=== PATIENT | male | born 2000 | race Caucasian/White ===

== ENCOUNTER 2023-07-29 08:49 | Emergency (ER) | payer OTHER, SELFPAY ==
--- NOTE | ~2023-07-29 | CT_ITS ---
EXAMINATION: CT ABDOMEN AND PELVIS WITHOUT CONTRAST CLINICAL INFORMATION: Right-sided flank pain and right upper quadrant pain COMPARISON: None available. TECHNIQUE: Multidetector volumetric imaging was performed from the superior aspect of the liver through the pubic symphysis. Sagittal and coronal reformatted images were obtained on the technologist's workstation. This CT examination was performed using dose optimization techniques as appropriate, variously including the following: *Automated exposure control *Adjustment of mA and/or kV according to patient size (this includes techniques or standardized protocols for targeted exams where dose is matched to indication/reason for exam; i.e. extremities or head) *Use of iterative reconstruction technique DLP: 835 mGy-cm FINDINGS: LUNG BASES: Diffuse bronchial thickening is present. No effusions, consolidations or lung masses are seen. LIVER, GALLBLADDER, AND BILIARY TREE: The liver is enlarged at 18.3 cm in cephalocaudad dimension with decreased attenuation consistent with hepatic steatosis. No focal hepatic lesion or biliary ductal dilatation is present. The gallbladder is unremarkable with no evidence of radiopaque gallstones, gallbladder wall thickening, or obvious pericholecystic inflammatory changes. PANCREAS: Unremarkable. SPLEEN: Unremarkable. ADRENAL GLANDS: Unremarkable. KIDNEYS AND URETERS: On the right, there is an obstructing 1 mm calculus seen at the right ureterovesical junction with mild dilatation of the ureter and right renal collecting system. There is a nonobstructing 2 mm calculus at the lower pole of the right kidney (4:352). No renal masses are seen. The left kidney appears normal. BLADDER: Empty but unremarkable aside from stone at the right UVJ GASTROINTESTINAL TRACT: The small and large bowel are unremarkable. The appendix is unremarkable. ABDOMINAL WALL: No significant hernia is appreciated. LYMPH NODES: Normal. VASCULAR: Unremarkable. PELVIC VISCERA: The prostate and seminal vesicles are unremarkable. OSSEOUS STRUCTURES: Unremarkable. CT/CT abdomen pelvis wo IV con IMPRESSION: 1. Obstructing 1 mm calculus right UVJ with mild hydronephrosis. 2. Nonobstructing 2 mm calculus lower pole right kidney. 3. Incidental note made of enlarged fatty liver and diffuse bronchial thickening. Fleischner guidelines were followed.
[2023-07-29 08:56] VITALS: BP 147/85; PULSE 76; O2SAT 100
[2023-07-29 09:05] VITALS: BP 131/87; PULSE 66; RESP 16; TEMP 36.2; O2SAT 98; BMI 31.9
[2023-07-29 09:07] VITALS: BP 131/81; PULSE 68; RESP 18; TEMP 36.2; O2SAT 98
--- NOTE | 2023-07-29 09:09 | PC.NURSE ---
Pt coming from home via EMS, Welsh speaking only and ammonia box operator utilized. Pt reports right sided ABD pain upper & lower since 0700AM this morning. Describes pain as squeezing, /, denies this has ever happened before. Pt also reports 1 episode of vomiting, dizziness and constipation. Pt denies any CP, SOB, fevers, cough. Pt is alert and oriented, breathing even and unlabored, skin WNL. Pt restless in bed, obviously uncomfortable. Guarding ABD, no obvious distention noted.
--- NOTE | 2023-07-29 09:33 | ED.ABDPAIN ---
HPI - Abdominal Pain General Chief Complaint: Abdominal Pain Stated Complaint: ABD PAIN Time Seen by Provider: 07/29/23 09:21 Source: patient, family and EMS Mode of arrival: EMS Limitations: no limitations History of Present Illness HPI narrative: 23-year-old male with no past significant medical history presented for evaluation of a sudden onset of right upper and right flank pain since this a.m., never experienced abdominal pain, been constipated last BM was4 days ago, pain with associated with nausea and vomiting x1, no fever, no chills, no history of intra-abdominal surgery, no known history of kidney stones, no hematuria, no dysuria, no frequency urination. Related Data Previous Rx's Medication Instructions Recorded ibuprofen 600 mg tablet 600 mg PO Q8H PRN pain #10 tabs 07/29/23 prednisone 20 mg tablet 20 mg PO BID #10 tabs 07/29/23 tamsulosin 0.4 mg capsule (Flomax) 0.4 mg PO BEDTIME #6 caps 07/29/23 Allergies Allergy/AdvReac Type Severity Reaction Status Date / Time No Known Allergies Allergy Verified 07/29/23 09:12 Review of Systems Review of Systems all other systems are reviewed and are negative Constitutional: Reports as per HPI and Reports no additional constitutional complaints Eyes: Reports as per HPI and Reports no additional eye complaints Reports system reviewed and no additional complaints, except as documented Cardiovascular: Reports as per HPI and Reports no additional cardiovascular complaints Respiratory: Reports as per HPI and Reports no additional respiratory complaints Gastrointestinal: Reports as per HPI and Reports no additional gastrointestinal complaints Genitourinary: Reports no additional female genitourinary complaints Musculoskeletal: Reports no additional musculoskeletal complaints Skin/Breast: Reports system reviewed and no additional complaints, except as docu Psychiatric: Reports no additional psychiatric complaints Endocrine: Reports no additional endocrine complaints Hematologic/Lymphatic: Reports no additional hematologic/lymphatic complaints Allergic/Immunologic: Reports no additional allergic/immunologic complaints Reports system reviewed and no additional complaints, except as documented and Reports Abnormal speech present [facility] Social History Social History Smoked in Last 30 Days: No Use of substances other than those prescribed or required for medical reasons: Yes Substance Use Type: Marijuana Advance Directives: No Advance Directives Information Provided: No Physical Exam ED Vital Signs: Vital Signs - 24 hr 07/29/23 09:05 07/29/23 09:07 07/29/23 12:20 Temperature 97.2 F 97.2 F 98 F Pulse Rate 66 68 66 Respiratory Rate 16 18 16 Blood Pressure 131/87 131/81 143/84 H Pulse Oximetry 98 98 99 Oxygen Delivery Method Room Air Room Air Room Air BMI result Body Mass Index 31.9 Vital signs have been reviewed and appear to be correct. Blood pressure elevated. Heart rate normal. Respiratory rate normal. Temperature normal. Oxygen saturation normal. Appearance: Alert. Oriented X3. No acute distress. Head: Normal external exam. Normocephalic. Atraumatic. No [place] signs noted. No raccoon eyes noted Eyes: PERRLA. EOMI. Conjunctiva and sclera normal. Eyelids normal. ENT: TM's Normal. Pharynx normal. Uvula midline. Moist mucous membranes. No trismus noted. No drooling noted. No muffled voice noted. Neck: Normal inspection. Neck supple. FROM. No adenopathy. Thyroid Normal. No meningeal signs. No neck mass noted. CVS: Normal heart rate and rhythm. Heart sound normal. No murmurs noted. Pulses normal throughout. Respiratory: No respiratory distress. Painless inspiration. Breath sounds normal. No wheezes/rales/rhonchi noted. Chest nontender. No accessory muscle usage noted or decreased air movement noted. Abdomen: Soft, mild RUQ tenderness, no rebound tenderness, no guarding, Bowel sounds normal in all 4 quadrants. No distention noted. No organomegaly noted. No visible injury noted. Back: R CVA tenderness. Full range of motion noted. Skin: Skin warm and dry. Normal skin color. Normal skin turgor. No rashes/lesions/lacerations noted. Extremities: No lower extremity edema. Extremities exhibit normal range of motion. Extremities nontender. Neuro: Oriented X 3. Cranial nerve exam: II-XII are grossly intact No motor deficit. No sensory deficit. Reflexes normal. Course Reevaluation(s) Reevaluation #1: patient feels much better still have slight pain, CT revealing 1 mm calculus in the right UVJ with mild hydronephrosis. Will discharge the patient on NSAIDs, prednisone, Flomax and follow-up with urology. Time: 13:36 Medical Decision Making Differential Diagnosis Differential Diagnoses: The differential diagnosis associated with the presentation includes ( Acute appendicitis, cholecystitis, acute pancreatitis, kidney stone, renal colic, UTI, pyelonephritis, electrolyte derangement, severe anemia.) Admission/Observation Consideration of admission/observation: Escalation of care including admission/observation considered Lab Data MDM Lab Attestation statement: I reviewed the patient's lab results. 07/29/23 09:38 07/29/23 09:38 Labs: Lab Results 07/29/23 07/29/23 Range/Units 09:38 09:51 WBC 13.4 H (4.8-10.8) X10*3/uL RBC 5.40 (4.60-5.80) X10*6/uL Hgb 15.5 (14.0-18.0) g/dl Hct 43.6 (42.0-52.0) % MCV 80.7 (80.0-98.0) fL MCH 28.7 (27.0-33.0) pg MCHC 35.6 (31.0-36.0) g/dl RDW 12.7 (11.0-16.0) % Plt Count 259 (160-400) X10*3/uL MPV 10.2 (9.4-12.4) fL Immature Gran % (Auto) 0.4 (0.0-0.4) % Neut % (Auto) 79.1 H (45-73) % Lymph % (Auto) 15.6 L (20-40) % [place] % (Auto) 4.4 (2-11) % Eos % (Auto) 0.4 (0-4) % Baso % (Auto) 0.1 (0-2) % Lymph # (Auto) 2.1 (1.2-4.9) X10*3/uL [place] # (Auto) 0.6 (0.1-1.2) X10*3/uL Eos # (Auto) 0.1 (0.0-0.4) X10*3/uL Baso # (Auto) 0.0 (0.0-0.2) X10*3/uL Abs Immat Gran (auto) 0.06 H (0.00-0.03) X10*3/uL Absolute Neuts (auto) 10.6 H (2.0-8.3) x10*3/uL Absolute Nucleated RBC 0.000 (0.0-0.012) X10*3/uL Nucleated RBC % (auto) 0.0 (0.0-0.2) /100WBC Sodium 141 (135-145) mmol/L Potassium 4.0 (3.3-5.1) mmol/L Chloride 107 (96-108) mmol/L Carbon Dioxide 23 (22-29) mmol/L Anion Gap 15 (12-20) BUN 13 (9-16) mg/dL Creatinine 1.09 (0.5-1.4) mg/dL Estim Creat Clear Calc 128.0 Estimated GFR > 60 Random Glucose 189 H (60-115) mg/dL Calcium 10.0 (8.4-10.2) mg/dL Total Bilirubin 0.4 (0.0-1.0) mg/dL Direct Bilirubin 0.2 (0.0-0.5) mg/dL AST 45 H (5-37) U/L ALT 96 H (0-40) U/L Alkaline Phosphatase 106 (39-117) U/L Total Protein 7.9 (6.5-8.0) g/dL Albumin 4.6 (3.5-5.0) g/dL Lipase 12 (8-78) U/L Urine Color Yellow Urine Appearance Clear Urine pH >= 9.0 (5.0-9.0) Ur Specific [place] 1.020 (1.005-1.025) Urine Protein 30 (1+) H (Neg-Trace) mg/dL Urine Glucose (UA) Negative (Negative) mg/dL Urine Ketones 15 (Negative) mg/dL Urine Blood Trace H (Negative) Urine Nitrite Negative (Negative) Ur Leukocyte Esterase Negative (Negative) Urine RBC 11-20 H (0-2) /HPF Urine WBC 0-5 (0-5) /HPF Ur Squamous Epith Cells 0-2 (0-2) /HPF Urine Bacteria None Seen (None Seen) Hyaline Casts 0-2 (0-2) /LPF Independent Interpretation I performed an independent interpretation of an: CT Scan ( Abdomen pelvis:1. Obstructing 1 mm calculus right UVJ with mild hydronephrosis. 2. Nonobstructing 2 mm calculus lower pole right kidney. 3. Incidental note made of enlarged fatty liver and diffuse bronchial thickening.) Radiology Impression Discussion of test interpretation with radiology: I have reviewed the radiologist's reading. Medications Administered Discontinued Medications Generic Name Dose Route Start Last Admin Trade Name Freq PRN Reason Stop Dose Admin Sodium Chloride 1,000 mls @ 999 mls/hr 07/29/23 09:28 07/29/23 10:36 Ns IV 07/29/23 10:28 Infused .Q1H1M ONE Infusion Ketorolac Tromethamine 30 mg 07/29/23 09:32 07/29/23 09:48 Ketorolac Tromethamine 30 Mg/Ml Vial IVPUSH 07/29/23 09:33 30 mg ONCE ONE Administration Ondansetron HCl 4 mg 07/29/23 09:32 07/29/23 09:49 Ondansetron Hcl 4 Mg/2 Ml Vial IVPUSH 07/29/23 09:33 4 mg ONCE ONE Administration Discharge Plan Discharge Clinical Impression: Calculus of kidney, Renal colic Patient Disposition: Home, Self-Care Instructions: Renal Colic (ED) Prescriptions: New prednisone 20 mg tablet 20 mg PO BID Qty: 10 0RF ibuprofen 600 mg tablet 600 mg PO Q8H PRN (Reason: pain) Qty: 10 0RF tamsulosin [Flomax] 0.4 mg capsule 0.4 mg PO BEDTIME Qty: 6 0RF Referrals: Ted Oconnor MD [Physician] -
[2023-07-29 09:41] LABS: MANUAL DIFF FLAG NO
[2023-07-29 09:47] LABS: Basophils Percent Auto 0.1 % (0-2); Eosinophils Absolute Auto 0.1 X10*3/uL (0.0-0.4); Eosinophils Percent Auto 0.4 % (0-4); Hematocrit 43.6 % (42.0-52.0); Hemoglobin 15.5 g/dl (14.0-18.0); Imm Gran Abs Auto 0.06 X10*3/uL (0.00-0.03); Imm Gran Pct Auto 0.4 % (0.0-0.4); Lymphocytes Absolute Auto 2.1 X10*3/uL (1.2-4.9); Lymphocytes Percent Auto 15.6 % (20-40); Mean Corpuscular HGB Conc 35.6 g/dl (31.0-36.0); Mean Corpuscular Hemoglobin 28.7 pg (27.0-33.0); Mean Corpuscular Volume 80.7 fL (80.0-98.0); Mean Platelet Volume 10.2 fL (9.4-12.4); Monocytes Absolute Auto 0.6 X10*3/uL (0.1-1.2); Monocytes Percent Auto 4.4 % (2-11); Neutrophils Absolute Auto 10.6 x10*3/uL (2.0-8.3); Neutrophils Percent Auto 79.1 % (45-73); Platelet Count 259 X10*3/uL (160-400); Red Cell Distribution Width 12.7 % (11.0-16.0); White Blood Count 13.4 X10*3/uL (4.8-10.8)
[2023-07-29] MEDS: Ketorolac Tromethamine 30 MG/ML VIAL IVPUSH (09:48)
[2023-07-29] MEDS: 0.9 % Sodium Chloride 1,000 ML 999 ML IV (09:49)
[2023-07-29] MEDS: ondansetron HCL 4 MG/2 ML VIAL IVPUSH (09:49)
[2023-07-29 09:59] LABS: Alanine Aminotransferase 96 U/L (0-40); Albumin Level 4.6 g/dL (3.5-5.0); Alkaline Phosphatase 106 U/L (39-117); Anion Gap 15 (12-20); Aspartate Amino Transferase 45 U/L (5-37); Bilirubin Direct 0.2 mg/dL (0.0-0.5); Bilirubin Total 0.4 mg/dL (0.0-1.0); Blood Urea Nitrogen 13 mg/dL (9-16); Carbon Dioxide 23 mmol/L (22-29); Chloride 107 mmol/L (96-108); Estimated Glomerular Filt Rate > 60; Glucose Random 189 mg/dL (60-115); Lipase 12 U/L (8-78); Sodium 141 mmol/L (135-145); Total Protein 7.9 g/dL (6.5-8.0)
[2023-07-29 10:01] LABS: Appearance Urine Clear; Color Urine Yellow; Glucose Urine UA Negative (Negative); Leukocyte Esterase Urine Negative (Negative); Nitrite Urine Negative (Negative); PH >= 9.0 (5.0-9.0); UMIC TRIGGER UACC YES; Urine Blood Trace (Negative); Urine Ketones 15 mg/dL (Negative); Urine Protein 30 (1+) mg/dL (Neg-Trace)
[2023-07-29 10:04] LABS: Bacteria Urine None Seen (None Seen); Hyaline Casts Urine 0-2 /LPF (0-2); Squamous Epithelial Cell Urine 0-2 /HPF (0-2); WBC Urine 0-5 /HPF (0-5)
[2023-07-29 12:20] VITALS: BP 143/84; PULSE 66; RESP 16; TEMP 36.6; O2SAT 99
[2023-07-29] MEDS: Ibuprofen 600 MG TABLET PO (13:46)
[2023-07-29 13:57] VITALS: BP 127/52; PULSE 66; RESP 16; TEMP 36.6; O2SAT 99
== END 2023-07-29 13:58 | disposition home or self-care (01) ==
PROVIDERS: Emergency Provider Emergency Medicine
DX: N13.2 Hydronephrosis with renal and ureteral calculous obstruction (principal)
CPT/HCPCS: 36415; 74176; 80048; 80076; 81001; 81003; 83690; 85025; 96361; 96374; 96375; 99284; 99285; J1885; J2405